=== PATIENT | male | born 1990 | race African-American/Black ===

== ENCOUNTER → 2016-09-05 | Emergency (ER) | payer OTHER ==
[~2016-09-05] VITALS: Ht 177.8 cm; Wt 97.5 kg
[~2016-09-05] MED LIST: NAPR500T PO; NAPROXEN 250 MG TAB PO ONE
[2016-09-05 23:21] VITALS: BP 158/64
--- NOTE | 2016-09-06 07:55 | REP ---
Clinical: Pain with recent trauma. Technique: Lateral axial views of the right calcaneus. Findings: Calcaneus and associated joint spaces as well as surrounding soft tissues appear normal. There is no evidence for acute fracture or dislocation. Impression: Normal right calcaneus. No acute fracture or dislocation. Signed by Sean Mott MD 09/06/2016 07:46 A
== END | disposition home or self-care (01) ==
LOC: M ED 21:29
DX: S86.011A Strain of right Achilles tendon, initial encounter (principal); X50.0XXA Overexertion from strenuous movement or load, initial encounter; Y92.410 Unspecified street and highway as the place of occurrence of the external cause; Y93.67 Activity, basketball; Y99.8 Other external cause status; M51.9 Unspecified thoracic, thoracolumbar and lumbosacral intervertebral disc disorder; F17.210 Nicotine dependence, cigarettes, uncomplicated